=== PATIENT | female | born 1985 | race Caucasian/White ===

== ENCOUNTER → 2016-09-26 | Outpatient (CLI) | payer OTHER ==
[~2016-09-26] MED LIST: CETI10TA10 PO; MTR600 PO; PRENTAB26 PO
[2016-09-29 12:00] LABS: HERPES SIMPLEX CULT SOURCE GENITAL-VULVA; HERPES SIMPLEX VIRUS CULT NOT ISOLATED (NOT ISOLATED)
== END | disposition home or self-care (01) ==
LOC: C.LABSPEC 17:47
PROVIDERS: ATTEND Obstetrics & Gynecology
DX: N76.6 Ulceration of vulva (principal); L29.8 Other pruritus

== ENCOUNTER → 2017-01-16 | Outpatient (CLI) | payer OTHER ==
[2017-01-16 09:40] LABS: HEMATOCRIT 41.7 % (37-47); MEAN CELL VOLUME 95.4 fL (80-100); MEAN CORPUSCULAR HEMOGLOBIN 32.3 pg (25-34); MEAN CORPUSCULAR HGB CONC 33.8 g/dl (32-36); MEAN PLATELET VOLUME 10.3 fL (7.4-10.4); PLATELET COUNT 305 K/uL (130-400); RED BLOOD COUNT 4.37 M/uL (4.2-5.4); WHITE BLOOD COUNT 5.02 K/uL (4.8-10.8)
[2017-01-16 10:02] LABS: PROLACTIN 10.08 ng/mL
== END | disposition home or self-care (01) ==
LOC: C.LAB1850 07:33
PROVIDERS: ATTEND Obstetrics & Gynecology
DX: Z31.41 Encounter for fertility testing (principal)

== ENCOUNTER → 2017-01-23 | Outpatient (CLI) | payer OTHER ==
--- NOTE | 2017-01-23 10:47 | OPERATIVE REPORT ---
DATE OF OPERATION: 01/23/2017 PREOPERATIVE DIAGNOSIS: Primary infertility. POSTOPERATIVE DIAGNOSIS: Same. PROCEDURE PERFORMED: Hysterosalpingogram. SURGEON: Dr. Kaur. FINDINGS: Injection of radiopaque dye into the uterus showed normal appearing uterine cavity, bilateral fill and spill from the fallopian tubes. PROCEDURE IN DETAIL: In the fluoroscopy suite, the patient was placed in dorsal lithotomy position. After verbal consent, the cervix was cleansed with Betadine. HSG cannula was inserted into the cervical os. Under direct fluoroscopic guidance injection of radiopaque dye with description as above. Instrumentation removed. The patient tolerated the procedure well. I attest to the content of the Intraoperative Record and any orders documented therein. Any exception s are noted below.
--- NOTE | 2017-01-23 10:50 | DIAGNOSTIC IMAGING REPORT ---
HYSTEROSALPINGOGRAM HISTORY: Infertility. FLUOROSCOPY TIME: 0.2 minutes. 3 fluoroscopic spot images. TECHNIQUE: The cervix was cannulated by the telephone operator chief-junior project coordinator and water soluble contrast was instilled into the uterus under fluoroscopic guidance. Multiple spot images were obtained. FINDINGS: The uterine cavity is normal in size, shape, and position. The fallopian tubes are patent and there is free peritoneal spill bilaterally. IMPRESSION: Normal hysterosalpingogram. Electronically signed by: Donald Becerril M.D. 01/23/2017 10:49 AM Dictated Date/Time: 01/23/2017 10:48 AM
== END | disposition home or self-care (01) ==
LOC: C.RAD 10:02
PROVIDERS: ATTEND Obstetrics & Gynecology
DX: Z31.41 Encounter for fertility testing (principal)